=== PATIENT | female | born 1985 | race African-American/Black ===

== ENCOUNTER 2017-10-17 17:29 | Emergency (ER) | payer OTHER ==
[2017-10-17] MEDS: NORCO, ANEXSIA 5/325MG TABLET (HYDROcodone/ACETAMINOPHEN) PO (18:45)
== END 2017-10-17 21:34 | disposition left against medical advice (07) ==
LOC: M ED 17:29
DX: Z04.1 Encounter for examination and observation following transport accident (principal); V49.49XA Driver injured in collision with other motor vehicles in traffic accident, initial encounter; Y92.410 Unspecified street and highway as the place of occurrence of the external cause; R68.84 Jaw pain; M54.2 Cervicalgia; M54.5 Low back pain; R51 Headache; R06.02 Shortness of breath; F17.210 Nicotine dependence, cigarettes, uncomplicated
CPT/HCPCS: 99281

== ENCOUNTER → 2018-02-22 | Outpatient (REF) | payer OTHER ==
[2018-02-22 19:22] LABS: BASO % 0.5 % (0.0-1.0); EOS # 0.2 10^3/uL (0.0-0.50); EOS % 2.6 % (0.0-3.0); HEMATOCRIT 35.6 % (36.0-47.0); HEMOGLOBIN 11.9 g/dl (12.0-15.5); LYMPH # 1.5 10^3/uL (1.5-4.5); LYMPH % 26.6 % (24.0-44.0); MEAN CORPUSCULAR HEMOGLOBIN 32.4 pg (27.0-33.0); MEAN CORPUSCULAR HGB CONC 33.4 g/dl (32.0-36.5); MONO # 0.4 10^3/uL (0.0-0.8); MONO % 6.2 % (0.0-5.0); NEUTROPHILS # 3.6 10^3/uL (1.8-7.7); NEUTROPHILS % 63.9 % (36.0-66.0); PLATELET COUNT, AUTOMATED 321 10^3/uL (150-450); RED BLOOD COUNT 3.67 10^6/uL (4.00-5.40); WHITE BLOOD COUNT 5.7 10^3/uL (4.0-10.0)
[2018-02-22 19:40] LABS: HEMOGLOBIN A1c 5.5 %
[2018-02-22 19:49] LABS: ALBUMIN 4.3 GM/DL (3.2-5.2); ALT/SGPT 18 U/L (12-78); BILIRUBIN,TOTAL 0.5 MG/DL (0.2-1.0); BLOOD UREA NITROGEN 12 MG/DL (7-18); CALCIUM LEVEL 9.3 MG/DL (8.5-10.1); CARBON DIOXIDE LEVEL 29 MEQ/L (21-32); CHLORIDE LEVEL 103 MEQ/L (98-107); CREATININE FOR GFR 0.84 MG/DL (0.55-1.30); GLOMERULAR FILTRATION RATE > 60.0 (>60); GLUCOSE, FASTING 80 MG/DL (70-100); POTASSIUM SERUM 4.3 MEQ/L (3.5-5.1); RHEUMATOID FACTOR QUANT < 10.0 IU/ML (<15.0); SODIUM LEVEL 139 MEQ/L (136-145); TOTAL 25(OH) VITAMIN D 12.4 NG/ML (30.0-100.0); TOTAL PROTEIN 7.4 GM/DL (6.4-8.2)
[2018-02-22 19:50] LABS: VITAMIN B12 LEVEL 285 PG/ML
[2018-02-22 20:00] LABS: ERYTHROCYTE SEDIMENTATION RATE 17 mm/hr (0-20)
[2018-02-23 10:43] LABS: DRVV SCREEN 32.1 SEC
[2018-02-23 10:53] LABS: PTT LUPUS TYPE ANTICOAG SCREEN 0.8 (0-1.2)
[2018-02-23 13:43] LABS: ALBUMIN 4.77 GM/DL (3.29-5.55); ALBUMIN % 64.4 % (55.8-66.1); ALPHA-1-GLOBULIN % 3.7 % (2.9-4.9); ALPHA-2-GLOBULINS % 7.3 % (7.1-11.8); BETA-1-GLOBULINS % 6.1 % (4.7-7.2); BETA-2-GLOBULINS % 4.1 % (3.2-6.5); GAMMA GLOBULIN % 14.4 % (11.1-18.8)
[2018-02-23 13:44] LABS: ALPHA-1-GLOBULINS 0.27 GM/DL (0.17-0.41); ALPHA-2-GLOBULINS 0.54 GM/DL (0.42-0.99); BETA-1-GLOBULINS 0.45 GM/DL (0.28-0.60); GAMMA GLOBULINS 1.07 GM/DL (0.65-1.58)
[2018-02-24 17:07] LABS: FOLATE 8.8 NG/ML
[2018-02-26 08:08] LABS: VITAMIN E(ALPHA TOCOPHEROL) 10.8 mg/L (5.9-19.4); VITAMIN E(GAMMA TOCOPHEROL) 0.8 mg/L (0.7-4.9)
[2018-02-26 10:23] LABS: CERULOPLASMIN 23.2 mg/dL (19.0-39.0); VITAMIN B1 LEVEL WHOLE BLOOD 71.8 nmol/L (66.5-200.0); VITAMIN B6,PYRIDOXAL PHOSPHATE 10.6 ug/L (2.0-32.8)
[2018-02-27 00:06] LABS: ANCA-ATYPICAL <1:20 titer (Neg:<1:20); ANTI DOUBLE STRAND-DNA AB 1 IU/mL (0-9); ANTINUCLEAR ANTIBODIES DIRECT Negative (Negative); COPPER PLASMA 97 ug/dL (72-166); CYTOPLASMIC NEUTROP AB ANCA-C <1:20 titer (Neg:<1:20); LEAD BLOOD ADULT 1 ug/dL (0-4); Lyme Disease IgG/IgM Antibodie <0.91 ISR (0.00-0.90); Lyme Disease IgM Ab Quantitati <0.80 index (0.00-0.79); MERCURY LEVEL None Detected ug/L (0.0-14.9); PERINUCLEAR AB ANCA-P <1:20 titer (Neg:<1:20); SJOGREN'S ANTI SS-A <0.2 AI (0.0-0.9); SJOGREN'S ANTI SS-B <0.2 AI (0.0-0.9)
== END ==
LOC: M LABNEURO 15:07
PROVIDERS: ATTEND Psychiatry & Neurology Neurology
DX: G62.9 Polyneuropathy, unspecified (principal)

== ENCOUNTER 2019-04-06 10:46 | Day surgery (SDC) | payer OTHER ==
[~2019-04-06] VITALS: Ht 175.3 cm; Wt 69.6 kg
[~2019-04-06 10:46] MED LIST: LIDOCAINE 1% MDV 20ML VIAL SQ PRN; LIDOCAINE 2% INJ 100 MG/5 ML SDV (FOR ANES.) As Ordered ONE; LR 1,000 ML IV ONE; MIDAZOLAM INJ 2 MG/2 ML VIAL (J2250) As Ordered ONE; fentaNYL 100 MCG/2 ML INJECTION (J3010) As Ordered ONE; propofoL 200 MG/20 ML VIAL As Ordered ONE
[2019-04-06 11:27] LABS: HEMATOCRIT 34.3 % (36.0-47.0); HEMOGLOBIN 11.1 g/dl (12.0-15.5)
[2019-04-06 11:40] LABS: HCG, SERUM QUALITATIVE NEGATIVE (NEGATIVE)
[2019-04-06] MEDS ORDERED: LIDOCAINE W/EPINEPHRINE 1% 20ML VIAL As Ordered ONE (13:45)
[2019-04-06] MEDS ORDERED: IODINE STRONG SOLN 15 ML BTL As Ordered ONE (13:45)
[2019-04-06] MEDS ORDERED: propofoL 200 MG/20 ML VIAL As Ordered ONE (14:08)
[2019-04-06] MEDS ORDERED: dexameTHASONE 4 MG/ML 1ML VIAL (J1100) As Ordered ONE (14:09)
[2019-04-06] MEDS ORDERED: ONDANSETRON 4MG/2ML VIAL (J2405) As Ordered ONE (14:09)
[2019-04-06] MEDS ORDERED: KETOROLAC 60 MG/2 ML VIAL (J1885) As Ordered ONE (14:09)
[2019-04-06 15:34] VITALS: BP 105/56
--- NOTE | 2019-04-07 10:28 | RO ---
DATE OF PROCEDURE: 04/06/2019 SURGEON: Savita Stringer MD BORING MACHINE OPERATOR PRODUCTION: None. SERVICE: Gynecology. INDICATIONS FOR OPERATION: Annette is a 34-year-old G3, P3 who was noted to have high grade squamous intraepithelial lesion on colposcopy of the cervix. 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 MATERIAL FORWARDED TO THE LAB FOR EXAMINATION: 1. Superficial superior Loop Electrosurgical Excision (LEEP). 2. Superficial inferior Loop Electrosurgical Excision (LEEP). 3. Deep Loop Electrosurgical Excision (LEEP). DESCRIPTION OF FINDINGS: There was a central nonstaining portion of the cervix when Lugol's was applied. Infection classification: II. ESTIMATED BLOOD LOSS: 10 mL. URINE OUTPUT: None assessed. IV FLUIDS: 700 mL of lactated ringer's. OPERATION PERFORMED: Loop Electrosurgical Excision (LEEP). DESCRIPTION OF OPERATION: After obtaining informed consent the patient was taken to the operating room where she underwent sedation with monitored anesthesia care (MAC). She was placed in low lithotomy position and the perineum and vagina were prepped and draped in sterile fashion. A coated speculum was inserted into the vagina and a coated tenaculum was used to grasp the anterior aspect of the cervix. Lugol's solution was applied to the center of the cervix and a central nonstaining portion was noted. 9 mL of 1% lidocaine with epinephrine were injected for intracervical block. The LEEP was then completed in three passes, superficial superiorly LEEP, then superficial inferior LEEP, and finally a deep LEEP in the central portion. Electrocautery was applied to the LEEP bed with adequate hemostasis. Monsel's solution was applied afterwards with adequate hemostasis noted. The patient tolerated the procedure well. Specimens were sent to pathology. The patient was awakened from anesthesia. All counts were correct times two. She was taken to the post-anesthesia care unit (PACU) in stable condition. JOSE
== END 2019-04-06 15:39 | disposition home or self-care (01) ==
LOC: M SDC 10:46
PROVIDERS: ATTEND Obstetrics & Gynecology
DX: N87.1 Moderate cervical dysplasia (principal)
CPT/HCPCS: 36415; 57522; 84703; 85014; 85018; 86850; 86900; 86901; 88307; J1100; J1885; J2250; J2405; J3010

== ENCOUNTER 2020-04-27 17:26 | Emergency (ER) | payer BC, OTHER ==
[~2020-04-27] VITALS: Ht 177.8 cm; Wt 60.3 kg
[2020-04-27 19:23] LABS: BASO % 0.1 % (0.0-1.0); HEMATOCRIT 34.4 % (36.0-47.0); HEMOGLOBIN 11.2 g/dl (12.0-15.5); LYMPH # 0.6 10^3/uL (1.5-5.0); LYMPH % 6.6 % (24.0-44.0); MEAN CORPUSCULAR HEMOGLOBIN 30.6 pg (27.0-33.0); MEAN CORPUSCULAR HGB CONC 32.6 g/dl (32.0-36.5); MONO # 0.2 10^3/uL (0.0-0.8); MONO % 1.8 % (2.0-8.0); NEUTROPHILS # 8.4 10^3/uL (1.5-8.5); NEUTROPHILS % 91.2 % (36.0-66.0); PLATELET COUNT, AUTOMATED 348 10^3/uL (150-450); RED BLOOD COUNT 3.66 10^6/uL (4.00-5.40); WHITE BLOOD COUNT 9.2 10^3/uL (4.0-10.0)
[2020-04-27] MEDS ORDERED: NS 1,000 ML IV ONE (19:40)
[2020-04-27] MEDS ORDERED: ONDA4TAB6 PO (21:19)
[2020-04-27 21:20] VITALS: BP 102/57
== END 2020-04-27 21:37 | disposition home or self-care (01) ==
LOC: M ED 17:26
DX: K52.9 Noninfective gastroenteritis and colitis, unspecified (principal); F17.200 Nicotine dependence, unspecified, uncomplicated